=== PATIENT | male | born 1985 | race Hispanic/Latino ===

== ENCOUNTER 2019-11-12 13:27 | Outpatient (CLI) | payer OTHER ==
--- NOTE | 2019-11-12 14:58 | CT ---
CT temporal bones noncontrast: DATE: 11/12/2019 HISTORY: 34-year-old male with "H 71.93, cholesteatoma of both ears" COMPARISON: None FINDINGS: Right side: There is soft tissue density material causing severe partial opacification of epitympanum, contiguous with almost total opacification of right mastoid antrum via opacification of aditus ad antrum. Opacification of all of the right mastoid air cells. Oval window niche almost totally opacified. Almost the entire right incus body is eroded. There are erosions of the head of the malleus manubrium of the malleus is present. Long process of the malleus is absent. Stapes is completely or almost completely absent. Thickened, retracted right tympanic membrane with 1 perforation superiorly at the pars flaccida at the eroded scutum, and the other at pars tensa. Soft tissue density within layer of material covers the cochlea. Partial opacification of hypotympanum. Diffuse mild to moderate soft tissue thickening at external auditory canal, especially medially. Multifocal tiny defects at tegmen tympani and tegmen mastoideum, questionable for dehiscences. Suspected dehiscence of superior semicircular canal. Otherwise no morphologic abnormality of IAC, cochlea, vestibule, vestibular aqueducts, semicircular c anals, facial nerve canal, carotid canal, and jugular bulb. Left side: Essentially total opacification of epitympanum, contiguous with totally opacified aditus ad antrum an d mastoid antrum. All of left mastoid air cells are opacified. Moderate partial opacification of mesotympanum and hypotympanum. Large perforation and or severe retraction of left tympanic membrane. Thin tegmen tympani and tegmen mastoideum. Scutum is blunted. Erosion of almost the entire body of the incus. Portion of long process of incus at least partially i ntact. Manubrium of the malleus at least partially intact. Erosions of head of malleus. Stapes not visualized. Oval window niche totally opacified. Thinning of bone at apex of superior semicircular ca nal. No morphologic abnormality of internal auditory canal, cochlea, vestibule, vestibular aqueducts, semicircular canals, facial nerve canal, carotid canal, and jugular bulb. IMPRESSION: 1.) Severe partial prostration of bilateral middle ear cavities associated with bilateral ossicular e rosions is evidence for bilateral cholesteatomas. 2) thickened and perforated bilateral tympanic membranes. 3) total opacification of bilateral mastoid air cells and mastoid antra
== END 2019-11-12 13:28 | disposition home or self-care (01) ==
LOC: BICCT 13:27
PROVIDERS: ATTEND Otolaryngology Plastic Surgery within the Head & Neck
DX: H71.93 Unspecified cholesteatoma, bilateral (principal); H72.93 Unspecified perforation of tympanic membrane, bilateral
CPT/HCPCS: 70480

== ENCOUNTER 2020-01-27 09:34 | Outpatient (CLI) | payer OTHER ==
[2020-01-28 12:31] LABS: SARS-CoV-2 MS2 Positive; SARS-CoV-2 N Gene Negative; SARS-CoV-2 S Gene Negative; SARS-CoV-2 by NAA Not Detected (NotDetected); SARS-CoV-2 orf1ab Negative
== END 2020-01-27 09:35 | disposition home or self-care (01) ==
LOC: LABBT 09:34
PROVIDERS: ATTEND Otolaryngology Otology & Neurotology
DX: H71.93 Unspecified cholesteatoma, bilateral (principal); H91.90 Unspecified hearing loss, unspecified ear; H93.8X9 Other specified disorders of ear, unspecified ear; H73.829 Atrophic nonflaccid tympanic membrane, unspecified ear; Z20.828 Contact with and (suspected) exposure to other viral communicable diseases
CPT/HCPCS: 87635; U0003

== ENCOUNTER 2020-01-31 05:37 | Day surgery (SDC) | payer OTHER ==
[2020-01-27 14:52] VITALS: BMI 34.8
[2020-01-31] MEDS ORDERED: Bacitracin Zinc Ointment 30 gm TUBE ONE (06:33)
[2020-01-31] MEDS ORDERED: EPINEPHrine 1 MG/ML AMP ONE (06:33)
[2020-01-31] MEDS ORDERED: Sodium Chloride 0.9% 10 ML ONE (06:33)
[2020-01-31] MEDS ORDERED: Lidocaine 1% w/Epinephrine 1:100K 20 ML VIAL ONE (06:33)
[2020-01-31] MEDS ORDERED: Bupivacaine 0.25% HCL 30 ML VIAL ONE (06:33)
[2020-01-31] MEDS ORDERED: NEOMYCIN-POLYMYXIN-HC EAR SUSP 200 DROP/10 ML BOT ONE (06:33)
[2020-01-31] MEDS ORDERED: Fentanyl 250 MCG/5 ML VIAL ONE (06:41)
[2020-01-31] MEDS ORDERED: Midazolam HCl 2 mg/2 ml Vial ONE (06:54)
[2020-01-31] MEDS ORDERED: SUGAMMADEX SODIUM 200 MG/2 ML VIAL ONE (07:45)
[2020-01-31] MEDS ORDERED: Ketorolac Tromethamine 30 MG/ML VIAL ONE (09:14)
[2020-01-31] MEDS ORDERED: Dexamethasone 20 MG/5 ML VIAL ONE (09:14)
[2020-01-31] MEDS ORDERED: PROPOFOL 200 MG/20 ML VIAL ONE (09:14)
[2020-01-31] MEDS ORDERED: Ondansetron PF 4 MG/2 ML Vial ONE (09:14)
[2020-01-31] MEDS ORDERED: Lidocaine 1% PF 5 ML VIAL ONE (09:14)
[2020-01-31] MEDS ORDERED: diphenhydrAMINE 50 MG/ML VIAL ONE (09:14)
[2020-01-31] MEDS ORDERED: EPHEDRINE 25 MG/5 ML SYRINGE ONE (09:14)
[2020-01-31] MEDS ORDERED: Rocuronium Bromide 10 MG/ML (10ML VIAL) ONE (09:14)
--- NOTE | 2020-01-31 19:42 | OP ---
DATE OF PROCEDURE: 01/31/2020 PREOPERATIVE DIAGNOSIS: Right cholesteatoma. PROCEDURES PERFORMED: 1. Right tympanoplasty mastoidectomy without ossicular chain reconstruction. 2. Microscopic surgical procedure. 3. Facial nerve monitoring, 2 hours. POSTOPERATIVE DIAGNOSIS: Right cholesteatoma. ANESTHESIA: General. COMPLICATIONS: None. ESTIMATED BLOOD LOSS: 5 mL. SPECIMENS: None. ASSISTANTS: None. DISPOSITION: Stable to recovery room. SUMMARY: Right intact canal wall procedure. Incus completely eroded. sectioned the head of the malleus. Stapes superstructure intact. Cholesteatoma throughout attic of the oval window slightly into the facial recess, but not the sinus tympani covering through all the attic and midway to this sinus dural angle. Put silastic, cartilage and fascia used to repair a large central perforation and bone dust repair for the attic had completely blocked retraction to the mastoid. It also repaired 2 mm anterior canal defect with bone dust and fascia about at the 10 o'clock position just lateral to the annulus. No concern for recurrence other than general concern could be as good hearing with the silastic spacer with devoid of second look. DESCRIPTION OF PROCEDURE: Procedure #1; right tympanoplasty mastoidectomy without ossicular chain reconstruction: After informed consent was obtained, the patient was taken to the operating room, placed in supine position. General endotracheal anesthetic was administered. Table rotated 180 degrees. Right ear was injected postauricular and transcanal with 0.25% Marcaine with epinephrine. With the right ear draped and draped in a sterile fashion, microscope was brought into the ear canal and a tympanomeatal flap was elevated at 10 to 6 position. Entered the middle ear space. There was marked soft granulation throughout the middle ear space. A 3 mm perforation was rimmed with granulation tissue. Postauricular incision was made and carried down with a 10 blade, reflected ear forward. Pericranial flap was elevated based anteriorly with Bovie cautery and retractor was placed. Cortical mastoid was performed somewhat lateral sigmoid, but the sigmoid was not exposed nor was facial nerve during the procedure. Cortical mastoidectomy was completed and a complete mastoidectomy with cholesteatoma in the areas described above. This reconstruction was performed as described above as well and the only place that was tight for cholesteatoma might be the head of the stapes. However, the stapes was intact and completely mobile. The incus had been completely eroded and no remnant whatsoever section of head of the malleus. Procedure #2; microscopic surgical procedure: Throughout the entirety of operation, microscope was integral part of procedure using 2 to 14 power and high illumination. Procedure #3; facial nerve monitoring for 2 hours: After induction, EMG electrodes were placed in orbicularis oculi and orbicularis auris, attached to nerve integrity monitoring system, set a response threshold of 100 microvolts and a stimulus of 0.8 milliamps. The facial nerve was intact and palpable through the mesotympanum to the second genu and then descending portion of the mastoid. This fallopian canal was intact and the facial recess was opened widely. Postauricular wound was closed with 2-0 and 3-0 and Dermabond for the skin and dense Gelfoam in the ear canal with a cotton ball and bacitracin. The patient tolerated the procedure well and returned over to anesthesia in stable condition. Job ID: [id number]
== END 2020-01-31 11:40 | disposition home or self-care (01) ==
LOC: SDC 05:37
PROVIDERS: ATTEND Otolaryngology Otology & Neurotology
DX: H71.93 Unspecified cholesteatoma, bilateral (principal); H73.891 Other specified disorders of tympanic membrane, right ear; H91.90 Unspecified hearing loss, unspecified ear
CPT/HCPCS: J0171; J1100; J1200; J1885; J2250; J2405; J2704; J3010; J3490; S0020

== ENCOUNTER 2023-07-10 10:43 | Outpatient (CLI) | payer OTHER | END 2023-07-10 10:44 | disposition home or self-care (01) | LOC: BICRAD 10:43 | PROVIDERS: ATTEND Nurse Practitioner Family | DX: S89.92XS Unspecified injury of left lower leg, sequela (principal); M79.89 Other specified soft tissue disorders; Z98.890 Other specified postprocedural states ==

== ENCOUNTER 2025-02-14 07:32 | Outpatient (CLI) | payer OTHER | END 2025-02-14 07:33 | disposition home or self-care (01) | LOC: SCSMRI 07:32 | PROVIDERS: ATTEND Nurse Practitioner Family | DX: Z02.6 Encounter for examination for insurance purposes (principal); S60.042A Contusion of left ring finger without damage to nail, initial encounter; M79.645 Pain in left finger(s); M25.442 Effusion, left hand; M65.942 Unspecified synovitis and tenosynovitis, left hand ==